=== PATIENT | male | born 1950 | race Caucasian/White ===

== ENCOUNTER 2018-07-07 11:25 | Inpatient (IN) | payer MEDICARE ==
[~2018-07-07] VITALS: Ht 170.2 cm; Wt 92.9 kg
[2018-07-07 12:06] VITALS: BP 129/77
[2018-07-07 12:35] LABS: HEMATOCRIT 42.3 % (42-54); MEAN CORPUSCULAR HEMOGLOBIN 28.1 pg (27.0-33.0); MEAN CORPUSCULAR VOLUME 85.1 fL (79-99); PLATELET COUNT (AUTO) 216 K/uL (130-400); RED BLOOD CELL COUNT(AUTO) 4.97 MIL/uL (4.50-6.20); RED CELL DISTRIBUTION WIDTH 15.9 % (11.0-15.5); WHITE BLOOD COUNT (AUTO) 7.7 K/uL (4.8-10.8)
[2018-07-07 12:52] LABS: CREATININE 1.3 mg/dL (0.5-1.5); POTASSIUM 4.5 mmol/L (3.5-5.1)
[2018-07-07] MEDS ORDERED: ROSU40TA20 PO (12:58)
[2018-07-07] MEDS ORDERED: LOSA1TAB54 PO (12:59)
[2018-07-07 13:01] LABS: INR 0.96 (0.85-1.15); PARTIAL THROMBOPLASTIN TIME 30.6 SEC (26.3-35.5); PROTHROMBIN TIME 10.1 SEC (9.6-11.6)
[2018-07-07 13:02] LABS: BAND NEUTROPHILS % (MANUAL) 1 % (0-2); BASOPHILS % (MANUAL) 2 % (0-2); EOSINOPHILS % (MANUAL) 6 % (1-6); LYMPHOCYTES % (MANUAL) 4 % (22-44); MONOCYTES % (MANUAL) 10 % (2-9); REACTIVE LYMPHOCYTES 9 % (0-0); SEGMENTED NEUTROPHILS % 68 % (40-70)
[2018-07-07 13:03] LABS: MAN.DIFF COMMENT-IMPRESSION MANUAL DIFFERENTIAL; PLATELET MORPHOLOGY COMMENT ADEQUATE
[2018-07-07] MEDS ORDERED: METO25TA6 PO (13:46)
[2018-07-07] MEDS ORDERED: METF500T7 PO (13:46)
[2018-07-07] MEDS ORDERED: ASPI-1012 PO (13:46)
[2018-07-07] MEDS ORDERED: OMEP20CA10 PO (13:52)
[2018-07-07 16:33] VITALS: BP 102/68
[2018-07-07 20:01] VITALS: BP 113/68
[2018-07-07] MEDS: METOPROLOL TARTRATE 25 MG TAB PO SCH ×2 (21:00→21:15)
[2018-07-07] MEDS: ATORVASTATIN CALCIUM 40 MG TABLET PO SCH (21:12)
[2018-07-08] VITALS (13 sets, daily range): BP systolic 101–135; BP diastolic 61–71
[2018-07-08] MEDS ORDERED: CEFAZOLIN SODIUM 1 GM VIAL ONE (07:19)
[2018-07-08] MEDS ORDERED: LIDOCAINE HCL 1% MDV 50ML VIAL ONE (07:19)
[2018-07-08] MEDS ORDERED: VANCOMYCIN 1GM+NS 250ML 500 ML IV ONE (07:47)
[2018-07-08] MEDS ORDERED: MIDAZOLAM HCL 1 MG/ML 2ML VIAL ONE (08:00)
[2018-07-08] MEDS ORDERED: MORPHINE SULFATE 4 MG/1ML SYG ONE (08:00)
[2018-07-08] MEDS: METFORMIN HCL 500 MG TAB.SR.24H PO SCH ×2 (08:00→12:34)
[2018-07-08] MEDS ORDERED: FENTANYL CITRATE PF 50 MCG/1 ML 2ML VIAL ONE (08:16)
[2018-07-08] MEDS: LOSARTAN/HYDROCHLOROTHIAZIDE 50-12.5MG TABLET PO SCH (09:00)
[2018-07-08] MEDS: METOPROLOL TARTRATE 25 MG TAB PO SCH ×3 (09:00→21:06)
[2018-07-08] MEDS: ASPIRIN 325 MG TABLET PO SCH ×2 (09:00→12:34)
[2018-07-08] MEDS ORDERED: ACETAMINOPHEN 325 MG TAB PO PRN ×2 (09:45)
[2018-07-08] MEDS ORDERED: CLINDAMYCIN 300 MG/D5W 50 ML 50 ML IV SCH (10:30)
[2018-07-08] MEDS: CLINDAMYCIN 300 MG/D5W 50 ML 50 ML IV SCH ×2 (14:20→21:06)
[2018-07-08] MEDS: ATORVASTATIN CALCIUM 40 MG TABLET PO SCH (21:06)
[2018-07-09] MEDS: CLINDAMYCIN 300 MG/D5W 50 ML 50 ML IV SCH ×3 (02:16→14:00)
[2018-07-09 03:00] VITALS: BP 110/68
[2018-07-09 07:51] VITALS: BP 126/71
[2018-07-09] MEDS: METOPROLOL TARTRATE 25 MG TAB PO SCH (08:48)
[2018-07-09] MEDS: LOSARTAN/HYDROCHLOROTHIAZIDE 50-12.5MG TABLET PO SCH (08:48)
[2018-07-09] MEDS: ASPIRIN 325 MG TABLET PO SCH (08:48)
[2018-07-09] MEDS: METFORMIN HCL 500 MG TAB.SR.24H PO SCH (08:49)
[2018-07-09 12:23] VITALS: BP 113/64
[2018-07-09] MEDS ORDERED: CLIN150C10 PO (12:36)
== END 2018-07-09 14:55 | disposition home or self-care (01) | DRG 242 ==
LOC: EDH 11:25 → 2DH 11:26
PROVIDERS: ADMIT Internal Medicine Cardiovascular Disease; ATTEND Internal Medicine Cardiovascular Disease
PROC: 0JH606Z Insertion of Pacemaker, Dual Chamber into Chest Subcutaneous Tissue and Fascia, Open Approach (ICD-10-PCS; principal; 2018-07-08)
PROC: 02HK3JZ Insertion of Pacemaker Lead into Right Ventricle, Percutaneous Approach (ICD-10-PCS; 2018-07-08)
PROC: 02H63JZ Insertion of Pacemaker Lead into Right Atrium, Percutaneous Approach (ICD-10-PCS; 2018-07-08)
DX: R55 Syncope and collapse (principal); I46.9 Cardiac arrest, cause unspecified; I25.10 Atherosclerotic heart disease of native coronary artery without angina pectoris; E78.5 Hyperlipidemia, unspecified; I10 Essential (primary) hypertension; Z95.1 Presence of aortocoronary bypass graft; Z88.0 Allergy status to penicillin; Z88.2 Allergy status to sulfonamides; Z88.8 Allergy status to other drugs, medicaments and biological substances; Z86.73 Personal history of transient ischemic attack (TIA), and cerebral infarction without residual deficits; Z82.49 Family history of ischemic heart disease and other diseases of the circulatory system
CPT/HCPCS: 33208; 33284; 36415; 71045; 71046; 80048; 82948; 85025; 85610; 85730; 93306; 99156; 99157; C1785; J0690; J2250; J2270; J3010; J3370; J3490

== ENCOUNTER → 2020-07-12 | Outpatient (CLI) | payer MEDICARE ==
[~2020-07-12] MED LIST: ASPI-1012 PO; CLIN150C10 PO; LOSA1TAB54 PO; METF-910 PO; METO25TA6 PO; OMEP20CA12 PO; ROSU40TA21 PO
== END | disposition home or self-care (01) ==
LOC: RAH 08:47
PROVIDERS: ATTEND Internal Medicine Cardiovascular Disease
DX: I71.4 Abdominal aortic aneurysm, without rupture (principal)
CPT/HCPCS: 76775

== ENCOUNTER 2022-01-30 13:16 | Emergency (ER) | payer MEDICARE ==
[~2022-01-30] VITALS: Ht 170.2 cm; Wt 97.5 kg
[~2022-01-30 13:16] MED LIST changes: +CLIN-116 PO; -CLIN150C10 PO
[2022-01-30 13:45] LABS: BASOPHILS % (AUTO) 0.6 % (0.0-5.0); EOSINOPHILS % (AUTO) 5.2 % (0.0-8.0); LYMPHOCYTES % (AUTO) 18.9 % (21.0-51.0); MEAN CORPUSCULAR HEMOGLOBIN 30.9 pg (27.0-33.0); MEAN CORPUSCULAR VOLUME 96.6 fL (79-99); MONOCYTES % (AUTO) 13.8 % (3.0-13.0); NEUTROPHILS % (AUTO) 61.2 % (40.0-77.0); PLATELET COUNT (AUTO) 217 K/uL (130-400); RED BLOOD CELL COUNT(AUTO) 4.66 MIL/uL (4.50-6.20); RED CELL DISTRIBUTION WIDTH 13.3 % (11.0-15.5); WHITE BLOOD COUNT (AUTO) 6.3 K/uL (4.8-10.8)
[2022-01-30 13:54] LABS: POTASSIUM 4.2 mmol/L (3.5-5.1)
[2022-01-30 13:59] LABS: ALBUMIN 3.7 g/dL (3.5-5.0); BILIRUBIN,TOTAL 0.8 mg/dL (0.2-1.0)
[2022-01-30] MEDS ORDERED: IOHEXOL-350 75 ML VIAL IV ONE (14:30)
[2022-01-30 15:55] VITALS: BP 174/80
[2022-01-30 16:20] LABS: APPEARANCE,URINE Clear (CLEAR); BILIRUBIN,URINE Negative (NEGATIVE); COLOR,URINE Yellow (YELLOW); GLUCOSE, URINE (UA) Negative (NEGATIVE); KETONES,URINE Negative (NEGATIVE); LEUKOCYTE ESTERASE ,URINE Negative (NEGATIVE); NITRATE,URINE Negative (NEGATIVE); OCCULT BLOOD,URINE Negative (NEGATIVE); PROTEIN,URINE Negative (NEGATIVE); UROBILINOGEN,URINE 0.2 mg/dL (0.2-1.0)
[2022-01-30 16:29] LABS: RBC,URINE 0-1 /HPF (0-1); WBC,URINE 0-1 /HPF (0-1)
[2022-01-30 16:30] LABS: BACTERIA,URINE Rare /HPF (None Seen); SQUAMOUS EPITHELIAL CELL,UR Rare /HPF (0-2)
== END 2022-01-30 16:32 | disposition home or self-care (01) ==
LOC: EDH 13:16
DX: M54.9 Dorsalgia, unspecified (principal); E11.9 Type 2 diabetes mellitus without complications; I10 Essential (primary) hypertension; Z88.0 Allergy status to penicillin; Z88.2 Allergy status to sulfonamides; Z88.8 Allergy status to other drugs, medicaments and biological substances; Z79.899 Other long term (current) drug therapy; Z79.82 Long term (current) use of aspirin; Z79.84 Long term (current) use of oral hypoglycemic drugs
CPT/HCPCS: 36415; 74174; 80053; 81001; 85025; 93005; 99285; Q9967